=== PATIENT | female | born 1940 | race Caucasian/White ===

== ENCOUNTER → 2017-05-02 | Outpatient (CLI) | payer OTHER ==
[~2017-05-02] MED LIST: ALENDRONATE SOD70 MG PO; CALCIUM WITH V1 EAC1 PO; CRESTOR10 MG PO; D3 VITAMIN; FIBER THERAPY0.52 GM PO; TRIAM/HCTZ
== END | disposition home or self-care (01) ==
LOC: CDC 09:47
DX: C18.9 Malignant neoplasm of colon, unspecified (principal)
CPT/HCPCS: 93000

== ENCOUNTER 2017-05-08 23:26 | Inpatient (IN) | payer OTHER ==
[~2017-05-08] VITALS: Ht 149.9 cm; Wt 71.3 kg
[~2017-05-08 23:26] MED LIST changes: +ASPIR 8181 M1 PO; +DYAZIDE, MA1 CAPSULE PO; +FERROUS GLUCON324 MG PO; +LIDEX 0.05% CRE60 GM TP; +LIPITOR10 MG PO; +METAMUCIL0.52 GM PO; +TYLENOL REGULA325 MG PO; +VITAMIN B122500 MCG PO; +VITAMIN D31000 UNIT PO; +ZYRTEC10 M2 PO
[2017-05-09 06:08] VITALS: BP 142/66
[2017-05-09 16:33] VITALS: BP 139/66
[2017-05-10 00:50] VITALS: BP 136/59
[2017-05-10 06:13] LABS: MCHC 30.6 G/DL (30.0-36.0); MCV 78.5 FL (83-99); MEAN PLAT.VOLUME 9.9 uM^3 (9.5-12.4); PLATELET COUNT 187 K/uL (156-360); RBC DIS.WIDTH-CV 23.6 % (11.8-14.6); RBC DIS.WIDTH-SD 63.2 % (39-53); RED BLOOD COUNT 4.46 M/uL (3.80-5.20); WHITE BLOOD COUNT 9.3 K/uL (4.1-10.2)
[2017-05-10 06:33] LABS: EOSINOPHIL (%) 0 % (0-5); IMMATURE GRANULOCYTE (%) 0.4 % (0.0-0.7); INSTRUMENT ABS NEUTROPHIL CT 7.4 K/uL; MONOCYTE COUNT 0.8 K/uL (0-0.8); NEUTROPHIL (%) 79.6 % (45-76); NEUTROPHIL COUNT 7.4 K/uL (1.8-6.4)
[2017-05-10 06:35] LABS: ALKALINE PHOSPHATASE 65 IU/L (3-129); ANION GAP 8 MEQ/L (2-14); CHLORIDE 105 MEQ/L (99-109); GFR ESTIMATE (CALCULATED) 57 mL/min/; GLUCOSE 106 mg/dL (70-99); MAGNESIUM 1.9 mg/dl (1.3-2.7); POTASSIUM 3.8 MEQ/L (3.7-5.4); SAMPLE HEMOLYSIS CHECK 0; SAMPLE ICTERIC CHECK 0; SAMPLE LIPEMIA CHECK 0; SODIUM 140 MEQ/L (136-147); TOTAL BILIRUBIN 0.4 MG/DL (0.0-1.0); UREA NITROGEN (BUN) 10 mg/dL (9-23)
[2017-05-10 07:54] VITALS: BP 136/64
[2017-05-10 17:10] VITALS: BP 124/60
[2017-05-11 00:11] VITALS: BP 115/52
[2017-05-11 04:21] VITALS: BP 117/56
[2017-05-11 07:00] LABS: HEMATOCRIT 33.2 % (36.0-46.0); MCH 24.2 PG (29.0-34.0); MCHC 30.4 G/DL (30.0-36.0); MCV 79.4 FL (83-99); PLATELET COUNT 148 K/uL (156-360); RBC DIS.WIDTH-CV 23.6 % (11.8-14.6); RBC DIS.WIDTH-SD 64.5 % (39-53); RED BLOOD COUNT 4.18 M/uL (3.80-5.20); WHITE BLOOD COUNT 6.4 K/uL (4.1-10.2)
[2017-05-11 07:27] LABS: ANION GAP 5 MEQ/L (2-14); CHLORIDE 104 MEQ/L (99-109); GFR ESTIMATE (CALCULATED) > 59 mL/min/; GLUCOSE 85 mg/dL (70-99); POTASSIUM 3.7 MEQ/L (3.7-5.4); SAMPLE HEMOLYSIS CHECK 0; SAMPLE ICTERIC CHECK 0; SAMPLE LIPEMIA CHECK 0; SODIUM 141 MEQ/L (136-147); UREA NITROGEN (BUN) 9 mg/dL (9-23)
[2017-05-11 08:16] VITALS: BP 113/56
[2017-05-11 10:30] VITALS: BP 132/62
[2017-05-11 16:20] VITALS: BP 104/53
[2017-05-12 00:28] VITALS: BP 122/58
[2017-05-12 07:37] VITALS: BP 108/66
[2017-05-12 09:14] LABS: EOSINOPHIL COUNT 0.1 K/uL (0-0.3); HEMATOCRIT 37.4 % (36.0-46.0); IMMATURE GRANULOCYTE (%) 0.4 % (0.0-0.7); INSTRUMENT ABS NEUTROPHIL CT 4.5 K/uL; LYMPHOCYTE COUNT 1.7 K/uL (1.0-2.8); MCH 24.1 PG (29.0-34.0); MCHC 30.2 G/DL (30.0-36.0); MCV 79.7 FL (83-99); MONOCYTE (%) 6.6 % (3-12); MONOCYTE COUNT 0.5 K/uL (0-0.8); NEUTROPHIL (%) 65.3 % (45-76); NEUTROPHIL COUNT 4.5 K/uL (1.8-6.4); RBC DIS.WIDTH-CV 23.1 % (11.8-14.6); RBC DIS.WIDTH-SD 63.7 % (39-53); RED BLOOD COUNT 4.69 M/uL (3.80-5.20); WHITE BLOOD COUNT 6.9 K/uL (4.1-10.2)
[2017-05-12 09:23] LABS: PLATELET COUNT 200 K/uL (156-360)
[2017-05-12 09:37] LABS: ALKALINE PHOSPHATASE 72 IU/L (3-129); ANION GAP 9 MEQ/L (2-14); CHLORIDE 102 MEQ/L (99-109); GFR ESTIMATE (CALCULATED) > 59 mL/min/; GLUCOSE 126 mg/dL (70-99); MAGNESIUM 1.7 mg/dl (1.3-2.7); POTASSIUM 3.7 MEQ/L (3.7-5.4); SAMPLE HEMOLYSIS CHECK 0; SAMPLE ICTERIC CHECK 0; SAMPLE LIPEMIA CHECK 0; SODIUM 141 MEQ/L (136-147); UREA NITROGEN (BUN) 7 mg/dL (9-23)
[2017-05-12 09:40] LABS: TOTAL BILIRUBIN 0.6 MG/DL (0.0-1.0)
[2017-05-12] MEDS ORDERED: COLACE100 MG PO (14:22)
[2017-05-12] MEDS ORDERED: NORCO 5/3251 TABLET PO (14:22)
== END 2017-05-12 15:49 | disposition home or self-care (01) | DRG 330 ==
LOC: 2SOUTH → ENRESERV 23:26 → 2SOUTH 05-09 05:07 → ENRESERV 05-09 12:35 → SDC 05-09 13:37 → EDSTATUS 05-09 13:37 → 2SOUTH 05-09 13:38 → 5EAST 05-09 14:56 → 2SOUTH 05-09 15:26 → 5EAST 05-12 15:49
PROVIDERS: Physician Assistant Surgical; Surgery
DX: C18.2 Malignant neoplasm of ascending colon (principal); K80.10 Calculus of gallbladder with chronic cholecystitis without obstruction; K66.0 Peritoneal adhesions (postprocedural) (postinfection); D50.9 Iron deficiency anemia, unspecified; E78.5 Hyperlipidemia, unspecified; I10 Essential (primary) hypertension; Z85.820 Personal history of malignant melanoma of skin; Z68.31 Body mass index [BMI] 31.0-31.9, adult; Z85.038 Personal history of other malignant neoplasm of large intestine; Z80.3 Family history of malignant neoplasm of breast; Z82.49 Family history of ischemic heart disease and other diseases of the circulatory system
CPT/HCPCS: 80048; 80053; 83735; 84100; 85025; 85027; 88304; 88305; 88309; 94799; J0131; J0360; J1100; J1170; J1650; J2405; J2550; J2765; J3010; J7120; Q0169; S0030